=== PATIENT | female | born 1960 | race African-American/Black ===

== ENCOUNTER 2017-02-21 16:58 | Emergency (ER) | payer OTHER ==
[~2017-02-21] VITALS: Ht 170.2 cm; Wt 87.1 kg
[~2017-02-21 16:58] MED LIST: ADVAIR 250-501 EACH; ADVAIR HFA115 MCG/21; ALBUTEROL INH; ALBUTEROL NEB; AMLODIPINE BESY10 MG; AVELOX 400 MG400 MG PO; AZITHROMYCIN 2250 MG PO; BACTRIM DS TAB1 EACH PO; CHERATUSSIN DA480 ML PO; CHLORTHALIDONE25 MG PO; CIPROFLOXACIN500 M1 PO; CLEOCIN HCL150 MG PO; DIFLUCAN150 MG PO; FAMVIR125 MG PO; FLONASE 0.05%50 MCG NASAL; IBUPROFEN 800800 M1 PO; LEXAPRO 10 MG T10 MG; LISINOPRIL PO; NORCO 5-325 TA1 EACH PO; NORFLEX100 MG PO; OMEPRAZOLE20 M2; PREDNISONE 20 M20 MG PO; PREVACID DIS; ROBAFEN AC SYR120 ML PO; TOPROL XL100 MG; TOPROL XL200 MG PO; ZPAK PO
[2017-02-21 16:59] VITALS: BP 151/72
[2017-02-21] MEDS ORDERED: ZANTAC 150MG T150 MG PO (17:01)
[2017-02-21] MEDS ORDERED: MUCINEX DM ER1 EACH PO (17:01)
[2017-02-21] MEDS ORDERED: ALDACTONE50 MG PO (17:01)
[2017-02-21 17:16] LABS: URINE BILIRUBIN NEGATIVE (Negative); URINE BLOOD 3+ (Negative); URINE COLOR YELLOW; URINE GLUCOSE-RANDOM* NEGATIVE (Negative); URINE KETONES TRACE (Negative); URINE NITRITE POSITIVE (Negative); URINE PROTEIN (DIPSTICK) 2+ (Negative); URINE SPECIFIC GRAVITY >= 1.030 (1.003-1.035)
[2017-02-21 17:23] LABS: CASTS None Seen /LPF (None Seen); CRYSTALS None Seen /LPF (None Seen); SQUAMOUS 0-3 Few /LPF (0-3)
[2017-02-21 17:24] LABS: BACTERIA >30 Many /HPF (None Seen); URINE RBC >20 Many /HPF (0-2); URINE WBC 6-15 Few /HPF (0-5)
[2017-02-21] MEDS ORDERED: MACROBID 100 M100 M1 PO (17:24)
[2017-02-21] MEDS ORDERED: DIFLUCAN200 MG PO (17:31)
== END 2017-02-21 17:33 | disposition home or self-care (01) ==
LOC: ER 16:58
PROVIDERS: Physician Assistant
DX: N39.0 Urinary tract infection, site not specified (principal); J45.909 Unspecified asthma, uncomplicated; I10 Essential (primary) hypertension; Z88.1 Allergy status to other antibiotic agents; Z88.2 Allergy status to sulfonamides; Z88.8 Allergy status to other drugs, medicaments and biological substances

== ENCOUNTER 2017-11-25 18:01 | Emergency (ER) | payer OTHER ==
[~2017-11-25] VITALS: Ht 170.2 cm; Wt 79.8 kg
[~2017-11-25 18:01] MED LIST changes: +ALDACTONE50 MG PO; +DIFLUCAN200 MG PO; +MACROBID 100 M100 M1 PO; +MOBIC15 MG PO; +MUCINEX DM ER1 EACH PO; +ZANTAC 150MG T150 MG PO
[2017-11-25] MEDS ORDERED: ZPAK PO (20:53)
[2017-11-25] MEDS ORDERED: PREDNISONE 20 M20 MG PO (20:53)
[2017-11-25] MEDS ORDERED: TRAMADOL 50 MG50 MG PO (20:53)
[2017-11-25] MEDS ORDERED: ALBUTEROL2.5 MG/31 INH (20:53)
[2017-11-25 21:05] VITALS: BP 131/72
== END 2017-11-25 21:09 | disposition home or self-care (01) ==
LOC: ER 18:01
DX: J20.9 Acute bronchitis, unspecified (principal); G89.29 Other chronic pain; M25.561 Pain in right knee; J45.909 Unspecified asthma, uncomplicated; I10 Essential (primary) hypertension; Z88.1 Allergy status to other antibiotic agents; Z88.2 Allergy status to sulfonamides; Z88.8 Allergy status to other drugs, medicaments and biological substances

== ENCOUNTER 2018-05-25 12:25 | Emergency (ER) | payer OTHER ==
[~2018-05-25] VITALS: Ht 170.2 cm; Wt 83.5 kg
[~2018-05-25 12:25] MED LIST changes: +ALBUTEROL2.5 MG/31 INH; +TRAMADOL 50 MG50 MG PO
[2018-05-25] MEDS ORDERED: ALBUTEROL2.5 MG/31 INH (12:44)
[2018-05-25 13:34] LABS: URINE BILIRUBIN NEGATIVE (Negative); URINE BLOOD NEGATIVE (Negative); URINE CLARITY CLEAR; URINE COLOR YELLOW; URINE GLUCOSE-RANDOM* NEGATIVE (Negative); URINE KETONES NEGATIVE (Negative); URINE LEUKOCYTES NEGATIVE (Negative); URINE NITRITE NEGATIVE (Negative); URINE PROTEIN (DIPSTICK) NEGATIVE (Negative); URINE UROBILINOGEN 0.2 E.U./dl (0.2-1.0)
[2018-05-25 14:08] VITALS: BP 144/96
== END 2018-05-25 14:09 | disposition home or self-care (01) ==
LOC: ER 12:25
PROVIDERS: Emergency Medicine
DX: J45.909 Unspecified asthma, uncomplicated (principal); N89.8 Other specified noninflammatory disorders of vagina; R10.2 Pelvic and perineal pain; I10 Essential (primary) hypertension; Z88.1 Allergy status to other antibiotic agents; Z88.2 Allergy status to sulfonamides; Z88.8 Allergy status to other drugs, medicaments and biological substances

== ENCOUNTER 2019-04-17 21:12 | Emergency (ER) | payer OTHER ==
[~2019-04-17] VITALS: Ht 170.2 cm; Wt 79.8 kg
[2019-04-17 21:56] LABS: URINE BILIRUBIN NEGATIVE (Negative); URINE BLOOD NEGATIVE (Negative); URINE CLARITY CLEAR; URINE COLOR YELLOW; URINE GLUCOSE-RANDOM* NEGATIVE (Negative); URINE KETONES NEGATIVE (Negative); URINE LEUKOCYTES-REFLEX NEGATIVE (Negative); URINE NITRITE-REFLEX NEGATIVE (Negative); URINE PROTEIN (DIPSTICK) NEGATIVE (Negative)
[2019-04-17] MEDS ORDERED: PREDNISONE 20 M20 MG PO (23:05)
[2019-04-17] MEDS ORDERED: NAPROSYN500 MG PO (23:06)
[2019-04-17 23:29] VITALS: BP 153/79
== END 2019-04-17 23:30 | disposition home or self-care (01) ==
LOC: ER 21:12
PROVIDERS: Emergency Medicine
DX: N72 Inflammatory disease of cervix uteri (principal); J45.909 Unspecified asthma, uncomplicated; I10 Essential (primary) hypertension; M19.90 Unspecified osteoarthritis, unspecified site; J44.9 Chronic obstructive pulmonary disease, unspecified; Z88.1 Allergy status to other antibiotic agents; Z88.8 Allergy status to other drugs, medicaments and biological substances; Z88.2 Allergy status to sulfonamides